=== PATIENT | female | born 1955 | race Caucasian/White ===

== ENCOUNTER 2018-07-14 08:02 | Day surgery (SDC) | payer OTHER ==
[2018-07-14] MEDS ORDERED: Propofol 200 MG/20 ML SDV IV ONE (08:03)
[2018-07-14] MEDS ORDERED: Lidocaine 1% PF 2 ML SDV INJECT ONE (08:03)
[2018-07-14] MEDS ORDERED: Lactated Ringers 1,000 ML IV SCH (08:15)
--- NOTE | 2018-07-14 10:44 | PCM.PN ---
- General Info Date of Service: 07/14/18 - Review of Systems Systems Review Comment:: 63 y/o female with history of recent change in bowel habits and decreased stool caliber here for colonoscopy. She is medically stable to proceed. Her recent H and P is reviewed and there has been no significant changes to her recent health status. Today Heart - Regular, Lungs Clear I have discussed the proposed colonoscopy with the patient. Risks such as but not limited to bleeding and GI injury discussed and she agrees to proceed. - Patient Data Vitals - Most Recent: Last Vital Signs Temp 98.1 F 07/14/18 08:47 Pulse 76 07/14/18 08:47 Resp 20 07/14/18 08:47 BP 132/78 07/14/18 08:47 Pulse Ox 96 07/14/18 08:47 Weight - Most Recent: 158 lb Med Orders - Current: Current Medications Lactated Ringer's (Ringers, Lactated) 1,000 mls @ 125 mls/hr IV ASDIRECTED [facility] Last Admin: 07/14/18 08:53 Dose: 125 mls/hr - Problem List Review Problem List Initiated/Reviewed/Updated: Yes - My Orders Last 24 Hours: My Active Orders 07/13/18 Dinner Nothing Per Oral Diet [DIET] 07/14/18 08:15 Patient Status [ADT] Routine Patient to Empty Bladder [RC] ASDIRECTED Verify Patient Consent Obtain [RC] ASDIRECTED Lactated Ringers [Ringers, Lactated] 1,000 ml IV ASDIRECTED Peripheral IV Insertion Adult [OM.PC] Routine - Assessment Assessment:: Change in bowel habits Decrease in stool caliber - Plan Plan:: Colonoscopy
--- NOTE | 2018-07-14 11:25 | PCM.OPNOTE ---
- General Post-Op/Procedure Note Date of Surgery/Procedure: 07/14/18 Operative Procedure(s): Colonoscopy with biopsy Findings: Large Sessile polyp in cecum Small Descending colon polyp Mild Sigmoid Diverticulosis Moderate External Hemorrhoids Pre Op Diagnosis: Change in Bowel Habits Post-Op Diagnosis: Colon Polyps. Sigmoid Diverticulosis. Hemorrhoids Anesthesia Technique: [place] [facility] [place]geon: Fidencio Garza Pathology: Biopsies of colon polyps Output, Urine Amount: 0 EBL in mLs: 2 Complications: None Condition: Good
--- NOTE | 2018-07-14 13:29 | OR ---
DATE OF OPERATION: 07/14/2018 SURGEON: Fidencio Garza MD REFERRING PHYSICIAN: Dr. Leonor Dunn. PREOPERATIVE DIAGNOSIS: Change in bowel habits. POSTOPERATIVE DIAGNOSES: Colon polyps, sigmoid diverticulosis, and hemorrhoids. OPERATION PERFORMED: Colonoscopy with biopsy. INDICATIONS FOR SURGERY: This 63-year-old female presents with a recent change in bowel habits with increased constipation as well as a decreased caliber of her stool. She is referred for colonoscopy. FINDINGS: The patient has moderate-sized external hemorrhoids, but no other rectal masses or rectal pathology is identified. The patient does have a relatively large sessile irregularly-shaped polyp in the cecum. This is estimated at 2 to 2.5 cm in size. It is soft, sessile in configuration, and without ulceration. One other polyp was identified in the descending colon 50 cm from the anal verge, which was a 4 mm sessile polyp. The patient has a mild degree of uncomplicated sigmoid diverticulosis. The colon otherwise appears normal. PROCEDURE IN DETAIL: The patient was taken to the procedure room. She was given intravenous sedation and with her in the left lateral decubitus position, digital rectal exam was performed showing no rectal masses. The Olympus colonoscope was inserted into the rectum. Retroflexed examination of the rectal canal was performed. The scope was then carefully advanced under direct visualization through the entire length of the colon until the cecum was reached. With careful persistent manipulation, the cecum was able to be cannulated and its identity confirmed by identifying the normal internal cecal anatomy including the appendiceal orifice and ileocecal valve as well as noting the light to transilluminate the abdominal wall in the right lower quadrant. Upon carefully examining the cecum, the above described large sessile polyp was identified on the cecal surface. This was felt to be too large to safely remove using conventional snare technique and it was anticipated that this would require an advanced technique for polyp removal such as saline lift. With this in mind, a cold biopsy forceps was used to take multiple biopsies of the polyp, but no cautery was used. This only biopsied the polyp and did not remove this polyp. The scope was then slowly withdrawn, sequentially re-examining the colonic segments. Upon withdrawal of the scope in the descending colon, a small polyp was identified and this was removed grossly in its entirety with multiple bites of the biopsy forceps. Examination is then completed, and after the entire colon and rectum had been fully examined with no sign of any complication, the scope was removed, and the patient was taken from the procedure room in satisfactory condition. ESTIMATED BLOOD LOSS: 2 mL. COMPLICATIONS: None. PROGNOSIS: Good. /[id number] WAN/DOUG
== END 2018-07-14 12:14 | disposition home or self-care (01) ==
LOC: FB.SDS 08:02
PROVIDERS: ATTEND Surgery
DX: K59.00 Constipation, unspecified (principal); D12.0 Benign neoplasm of cecum; D12.4 Benign neoplasm of descending colon; K64.4 Residual hemorrhoidal skin tags; K57.30 Diverticulosis of large intestine without perforation or abscess without bleeding; F32.9 Major depressive disorder, single episode, unspecified; Z79.899 Other long term (current) drug therapy; Z88.1 Allergy status to other antibiotic agents; Z88.8 Allergy status to other drugs, medicaments and biological substances
CPT/HCPCS: 45380; 88305; J2001; J2704; J7120